=== PATIENT | male | born 2000 | race Asian ===

== ENCOUNTER 2024-01-11 17:02 | Emergency (ER) | payer MEDICAID ==
[~2024-01-11] VITALS: Ht 172.7 cm; Wt 56.3 kg
[2024-01-11 19:55] LABS: Urine Bacteria NONE SEEN /hpf (None Seen); Urine Blood Negative /uL (Negative); Urine Clarity Clear (Clear); Urine Color Yellow (Yellow); Urine Mucus FEW (None Seen); Urine Protein, UAD Negative (Negative); Urine Specific Gravity 1.029 (1.001-1.035); Urine Urobilinogen Normal (Negative); Urine WBC 2 /hpf (0 - 3); Urine pH 5.5 (5.0-8.0)
[2024-01-11] MEDS ORDERED: NAP500T PO (20:08)
[2024-01-11] MEDS ORDERED: DOXY1CAP57 PO (20:08)
[2024-01-11] MEDS: cefTRIAXone W LIDOCAINE 500 MG IM IM ONE (20:43)
[2024-01-11] MEDS: cefTRIAXone SOD 500 MG VL IM ONE (20:48)
[2024-01-11] MEDS: KETOROLAC TROMETH 60MG/2ML VIAL IM ONE (20:48)
[2024-01-11 20:59] VITALS: BP 104/64; PULSE 67; RESP 18; TEMP 98.1; O2SAT 97
== END 2024-01-11 21:08 | disposition home or self-care (01) ==
LOC: ER 17:02
DX: N45.3 Epididymo-orchitis (principal)
CPT/HCPCS: 76870; 81001; 96372; 99285; J0696; J1885